=== PATIENT | male | born 1960 | race Caucasian/White ===

== ENCOUNTER 2020-04-23 02:21 | Emergency (ER) | payer OTHER ==
[~2020-04-23] VITALS: Ht 175.3 cm; Wt 81.7 kg
[2020-04-23] MEDS ORDERED: EAR DROPS OTIC (02:31)
[2020-04-23] MEDS ORDERED: TRAZODONE 150150 M1 PO (02:31)
[2020-04-23] MEDS ORDERED: AMOXICILLIN 50500 MG PO (02:31)
[2020-04-23] MEDS ORDERED: LISINOPRIL2.5 MG PO (02:32)
[2020-04-23 03:02] LABS: ABSOLUTE NEUTROPHILS 6.7 thou/uL (1.4-8.2); BASOPHILS 0.4 % (0.0-2.0); EOSINOPHILS 0.2 % (0.0-3.0); HEMATOCRIT 42.9 % (42.0-52.0); LYMPHOCYTES 12.2 % (24.0-44.0); MCH 34.8 pg (26.0-34.0); MCV 99.5 fL (80.0-100.0); MONOCYTES 5.9 % (1.0-8.0); PLATELET COUNT 119 thou/uL (150-400); POLYS 81.3 % (36.0-66.0); RBC 4.31 mil/uL (4.50-6.00); RDW 14.7 % (10.5-14.5); WBC 8.3 thou/uL (4.0-11.0)
[2020-04-23 03:12] LABS: CALCIUM 8.6 mg/dL (8.5-10.1); CREATININE 2.4 mg/dL (0.7-1.3); TROPONIN-I 0.07 ng/mL (<0.06)
[2020-04-23 03:16] LABS: POTASSIUM 2.6 mmol/L (3.5-5.1)
[2020-04-23 03:44] VITALS: BP 150/89
--- NOTE | 2020-04-23 12:07 | EKG ---
[facility] [place] [address] ELECTROCARDIOGRAM REPORT Name: CHERELLE SANTAMARIA Room #: DEP [facility]#: [id number] Admission: 04/23/20 Attend Phys: Discharge: 04/23/20 Date of : 64 Report #: [id number] THIS REPORT FOR: cc: FAM - Family physician unknown FAM - Family physician unknown Abhishek Tobias MD ~ THIS REPORT FOR: //name// [facility] ED Test Date: 2020-04-23 Test Time: 02:48:11 Pat Name: CHERELLE SANTAMARIA Department: Room: Gender: [place] Steward: haider : 1960 Requested By: Vaughn Allen Order Number: [id number] MD: Abhishek Tobias Measurements Intervals [place] Rate: 127 P: 17 SD: 138 QRS: 21 QRSD: 80 T: 91 QT: 314 QTc: 457 Interpretive Statements Sinus tachycardia Borderline repolarization abnormality No previous ECG available for comparison Electronically Signed On 04-23-2020 12:05:58 CDT by Abhishek Tobias [email or web address] <ELECTRONICALLY SIGNED> By: Abhishek Tobias MD 04/23/20 1205 [id number] Abhishek Tobias MD /OZZY
== END 2020-04-23 04:24 | disposition home or self-care (01) ==
LOC: ER 02:21
PROVIDERS: Emergency Medicine
DX: E87.6 Hypokalemia (principal); F22 Delusional disorders; N28.9 Disorder of kidney and ureter, unspecified; R00.0 Tachycardia, unspecified; R79.89 Other specified abnormal findings of blood chemistry; R42 Dizziness and giddiness; F32.9 Major depressive disorder, single episode, unspecified; F41.9 Anxiety disorder, unspecified; Z98.890 Other specified postprocedural states; Z90.89 Acquired absence of other organs; Z79.2 Long term (current) use of antibiotics; Z79.899 Other long term (current) drug therapy; Z53.29 Procedure and treatment not carried out because of patient's decision for other reasons